=== PATIENT | female | born 1965 | race Caucasian/White ===

== ENCOUNTER 2020-09-28 09:53 | Inpatient (IN) | payer OTHER ==
[~2020-09-28] VITALS: Ht 157.5 cm; Wt 58.1 kg
[2020-09-28 12:53] LABS: HEMOGLOBIN 14.2 gm/dl (12.3-15.3); RED BLOOD COUNT 4.46 M/UL (4.00-5.10); WHITE BLOOD COUNT 9.2 K/UL (4.5-11.0)
[2020-09-28 13:15] LABS: BUN/CREATININE RATIO 7 (0-10)
[2020-09-28] MEDS ORDERED: ATENOLOL25 MG PO (14:55)
[2020-09-28] MEDS ORDERED: BENTYL 20MG TAB20 MG PO (14:55)
[2020-09-28] MEDS ORDERED: AMLODIPINE BESYL5 MG PO (15:43)
[2020-09-28] MEDS ORDERED: PROVENTIL HFA6.7 GM INH (15:43)
[2020-09-28] MEDS ORDERED: SYMBICORT 16010.2 GM INH (15:44)
[2020-09-28] MEDS ORDERED: WELLBUTRIN XL150 MG PO (15:45)
--- NOTE | 2020-09-29 03:12 | NUR ---
PATIENT OXYGEN SATURATION MEASURED 82% ON ROOM AIR BUT DIDN'T APPEAR TO BE OR VERBALIZE FEELING SHORT OF AIR. RN NOTIFIED MD WHO ORDERED RN TO APPLY OXYGEN VIA NASAL CANNULA @ 2 L/MIN THEN REASESS OXYGEN SATURATION. OXYGEN SATURATION MEASURED 99% VIA 2 L/MIN NASAL CANNULA.
[2020-09-29 03:47] LABS: WHITE BLOOD COUNT 7.7 K/UL (4.5-11.0)
[2020-09-29 03:48] LABS: HEMOGLOBIN 12.2 gm/dl (12.3-15.3); RED BLOOD COUNT 3.9 M/UL (4.00-5.10)
[2020-09-29 04:10] LABS: BUN/CREATININE RATIO 7 (0-10)
[2020-10-01 03:32] LABS: HEMOGLOBIN 11.3 gm/dl (12.3-15.3); RED BLOOD COUNT 3.53 M/UL (4.00-5.10)
[2020-10-01 03:50] LABS: BUN/CREATININE RATIO 8 (0-10)
--- NOTE | 2020-10-01 11:37 | NUR ---
Monitored patients oxygen saturation on room air. Patients oxygen saturation dropped to 79% while resting in bed.
[2020-10-01] MEDS ORDERED: NICOTINE PATCH1 EAC2 TOP (12:10)
[2020-10-01] MEDS ORDERED: PROVENTIL HFA6.7 GM INH (12:10)
--- NOTE | 2020-10-01 12:51 | NUR ---
Patients fuentes removed 10/01/20 at 1200. No complications.
[2020-10-01] MEDS ORDERED: PERCOCET 5-3251 EACH PO (13:35)
--- NOTE | 2020-10-01 15:53 | NUR ---
Discharge instructions provided to patient and . Patient and educated on how to perform lovenox shots at home. Patient also shown how to perform pinsite care on external fixator ( at bedside). Supplies given until home health comes out. Patient education reguarding pinsite care printed and placed in patients discharge folder. Patient and denies further questions at this time.
== END 2020-10-01 15:48 | disposition home or self-care (01) | DRG 493 ==
LOC: ER1 09:53 → M/S 14:43 → CDU 14:43 → M/S 16:50
PROVIDERS: Internal Medicine; Orthopaedic Surgery; Physician Assistant; ADMIT Internal Medicine
PROC: 0QSH05Z Reposition Left Tibia with External Fixation Device, Open Approach (ICD-10-PCS; principal; 2020-09-29 14:22)
DX: S82.252A Displaced comminuted fracture of shaft of left tibia, initial encounter for closed fracture (principal); E87.1 Hypo-osmolality and hyponatremia; J96.11 Chronic respiratory failure with hypoxia; M25.08 Hemarthrosis, other specified site; Z20.822 Contact with and (suspected) exposure to COVID-19; E87.6 Hypokalemia; J44.9 Chronic obstructive pulmonary disease, unspecified; D64.9 Anemia, unspecified; I10 Essential (primary) hypertension; F41.9 Anxiety disorder, unspecified; Y93.01 Activity, walking, marching and hiking; F32.9 Major depressive disorder, single episode, unspecified; W10.9XXA Fall (on) (from) unspecified stairs and steps, initial encounter; F17.210 Nicotine dependence, cigarettes, uncomplicated; S82.452A Displaced comminuted fracture of shaft of left fibula, initial encounter for closed fracture; Z81.1 Family history of alcohol abuse and dependence; Z90.49 Acquired absence of other specified parts of digestive tract; Z82.5 Family history of asthma and other chronic lower respiratory diseases; Z88.5 Allergy status to narcotic agent; Z88.0 Allergy status to penicillin; Y92.009 Unspecified place in unspecified non-institutional (private) residence as the place of occurrence of the external cause; Z83.79 Family history of other diseases of the digestive system; Z56.0 Unemployment, unspecified
CPT/HCPCS: 36415; 71045; 73564; 73590; 73630; 73700; 74150; 76000; 80048; 80053; 85025; 85610; 85730; 90471; 90715; 93005; 96372; 97162; 97166; 99284; A6212; C1713; J0690; J1170; J1650; J2001; J2270; J2405; J2704; J3010; J7120; U0002

== ENCOUNTER 2020-10-09 07:17 | Day surgery (SDC) | payer OTHER ==
[~2020-10-09] VITALS: Ht 157.5 cm; Wt 58.1 kg
[~2020-10-09 07:17] MED LIST: AMLODIPINE BESYL5 MG PO; ATENOLOL25 MG PO; BENTYL 20MG TAB20 MG PO; NICOTINE PATCH1 EAC2 TOP; PERCOCET 5-3251 EACH PO; PROVENTIL HFA6.7 GM INH; SYMBICORT 16010.2 GM INH; WELLBUTRIN XL150 MG PO
[2020-10-09 08:06] LABS: HEMOGLOBIN 12.6 gm/dl (12.3-15.3); RED BLOOD COUNT 4.16 M/UL (4.00-5.10); WHITE BLOOD COUNT 11.7 K/UL (4.5-11.0)
[2020-10-09 08:59] LABS: BUN/CREATININE RATIO 8 (0-10)
[2020-10-09] MEDS ORDERED: ENOXAPARIN40 MG/0.4 SQ (16:17)
[2020-10-10 02:16] LABS: HEMOGLOBIN 11.6 gm/dl (12.3-15.3); WHITE BLOOD COUNT 9.8 K/UL (4.5-11.0)
[2020-10-10 02:21] LABS: RED BLOOD COUNT 3.72 M/UL (4.00-5.10)
[2020-10-10 02:32] LABS: BUN/CREATININE RATIO 9 (0-10)
[2020-10-10] MEDS ORDERED: CELEBREX200 MG PO (08:32)
[2020-10-10] MEDS ORDERED: GABAPENTIN300 MG PO (08:32)
== END 2020-10-10 11:15 | disposition home or self-care (01) ==
LOC: OR 07:17 → M/S 14:41 → OR 10-10 11:15
PROVIDERS: Orthopaedic Surgery
DX: S82.142A Displaced bicondylar fracture of left tibia, initial encounter for closed fracture (principal); J44.9 Chronic obstructive pulmonary disease, unspecified; I10 Essential (primary) hypertension; J96.11 Chronic respiratory failure with hypoxia; E87.1 Hypo-osmolality and hyponatremia; Z79.899 Other long term (current) drug therapy; Z20.822 Contact with and (suspected) exposure to COVID-19; Z88.0 Allergy status to penicillin; Z88.5 Allergy status to narcotic agent; Z87.442 Personal history of urinary calculi; Z87.891 Personal history of nicotine dependence; Z90.89 Acquired absence of other organs; W01.0XXA Fall on same level from slipping, tripping and stumbling without subsequent striking against object, initial encounter
CPT/HCPCS: 36415; 73590; 76000; 80048; 82436; 82570; 83935; 84133; 84300; 85025; 97161; 97530; C1713; J1170; J1650; J1885; J2001; J2250; J2704; J3010; J7120